=== PATIENT | male | born 1985 | race Two or more races ===

== ENCOUNTER 2018-02-15 13:19 | Emergency (ER) | payer OTHER ==
[2018-02-15 13:26] VITALS: BP 121/75
--- NOTE | 2018-02-15 13:49 | EDPHY ---
H & P Stated Complaint: Dizzy with episodes of nose bleeds x 3 days Time Seen by Provider: 02/15/18 13:36 HPI/ROS: HPI: This is a 32-year-old male who presents with Chief Complaint: Dizzy with episodes of nose bleeds x 3 days Location: Right nostril Quality: Dryness and bleeding Duration: 3 days Signs and Symptoms: no fever, no nausea, no vomiting, no photophobia, no noise sensitivity, no neck stiffness, no ear pain, no tinnitus, + nasal congestion, + sinus pressure, no weakness, no radiation, no aura Timing: Intermittent episodes Severity: Worse this morning Context: Patient reports that he recently traveled to [place] and developed a cold over the last 1 week. Reports that he has nasal congestion, nasal dryness , nasal discharge and sinus pressure. Over the last 3 days he has had intermittent nosebleeds while blowing his nose. This morning he blew his nose and blood started dripping out of his right nostril. Not on any blood thinners. He also complains of sore throat. Modifying Factors: Comment: ROS: A comprehensive 10 system review of systems is otherwise negative aside from elements mentioned in the history of present illness. MEDICAL/SURGICAL/SOCIAL HISTORY: Medical history: Gastric ulcers Surgical history: Denies Social history: Originally from [place]. Family history noncontributory. CONSTITUTIONAL: Extremely well-appearing adult male, awake and alert, no obvious distress HEENT: Atraumatic and normocephalic, PERRL, EOMI. Nares patent; no rhinorrhea; no epistaxis; green discharge with mucosal edema and maxillary bilateral sinus tenderness. Tympanic membranes clear. Oropharynx clear, no exudate and moist pink mucosa. Airway patent. No lymphadenopathy. No meningismus. Cardiovascular: Normal S1/S2, regular rate, regular rhythm, without murmur rub or gallop. PULMONARY/CHEST: Symmetrical and nontender. Clear to auscultation bilaterally. Good air movement. No accessory muscle usage. ABDOMEN: Soft, nondistended, nontender, no rebound, no guarding, no peritoneal signs, no masses or organomegaly. No CVAT. EXTREMITIES: 2/2 pulses, strength 5/5, no deformities, no clubbing, no cyanosis or edema. NEUROLOGICAL: no focal neuro deficits. GCS 15. SKIN: Warm and dry, no erythema. no rash. Good capillary refill. Source: Patient Exam Limitations: No limitations - Medical/Surgical History Hx Asthma: No Hx Chronic Respiratory Disease: No Hx Diabetes: No Hx Cardiac Disease: No Hx Renal Disease: No Hx Cirrhosis: No Hx Alcoholism: No Hx HIV/AIDS: No Hx Splenectomy or Spleen Trauma: No Other PMH: gastric ulcers - Social History Smoking Status: Never smoked Constitutional: Initial Vital Signs Temperature (C) 36.7 C 02/15/18 13:22 Heart Rate 89 02/15/18 13:22 Respiratory Rate 16 02/15/18 13:22 Blood Pressure 121/75 H 02/15/18 13:22 O2 Sat (%) 97 02/15/18 13:22 O2 Delivery Mode Room Air Allergies/Adverse Reactions: No Known Allergies Allergy (Unverified 02/15/18 13:21) Home Medications: Medication Instructions Recorded Amoxicillin/Clavulanate Pot 875 mg PO BID #14 tab 02/15/18 [Augmentin 875 MG TAB (*)] Sodium Chloride [Saline Nasal Mist] 1 - 2 spray NS Q6 PRN #126 ml 02/15/18 Medical Decision Making Procedures: Procedure: Epistaxis control. After verbal consent was obtained, the patient was anesthetized with 1% Lidocaine with epinephrine. No epistaxis was identified. The patient was treated with nasal packing. The patient tolerated the procedure well. The procedure was performed by myself. ED Course/Re-evaluation: Patient clinically has a sinus infection that has been present over 7 days. No active epistaxis in the emergency room. Nasal packing with 1% lidocaine and epinephrine placed into the right nostril. Given a prescription for Augmentin and nasal saline spray. No indication for laboratory studies. This patient was seen under the supervision of my secondary supervising physician. I evaluated care for this patient independently. Discussed this patient with Dr. Flores. Differential Diagnosis: Differential diagnosis includes but is not limited to nasal dryness, coagulopathy, sinusitis, trauma, digital manipulation. Departure - Departure Disposition: Home, Routine, Self-Care Clinical Impression: Acute bacterial sinusitis Condition: Good Instructions: Sinusitis (ED), Nosebleed (ED) Additional Instructions: Remove nasal packing in 24 hours. Apply Vaseline to the inner nostrils or use nasal saline spray. Avoid picking your nose or blowing your nose in the next 3 days. Take Augmentin as directed. Do not skip a dose. Referrals: [facility],. [Clinic] - 5-7 days, if not improved Prescriptions: Amoxicillin/Clavulanate Pot [Augmentin 875 MG TAB (*)] 875 mg PO BID #14 tab Sodium Chloride [Saline Nasal Mist] 1 - 2 spray NS Q6 PRN #126 ml PRN Reason: Dry Nose
== END 2018-02-15 14:16 | disposition home or self-care (01) ==
PROC: 2Y41X5Z Packing of Nasal Region using Packing Material (ICD-10-PCS; principal; 2018-02-15)
DX: R04.0 Epistaxis (principal); J01.90 Acute sinusitis, unspecified